=== PATIENT | female | born 1960 | race Caucasian/White ===

== ENCOUNTER 2022-01-27 05:25 | Day surgery (SDC) | payer OTHER ==
[~2022-01-27] VITALS: Ht 158 cm; Wt 95.0 kg
[~2022-01-27 05:25] MED LIST: CALCIUM 600 +1 EA13 PO; CELEBREX200 MG PO; EFFEXOR-XR 75 M75 MG PO; FISH OIL 500 M1 EAC2 PO; HCTZ12.5 MG PO; MAG-OXIDE 400M400 MG PO; MULTI FOR HER1 EAC2 PO; OXYBUTYNIN CHLO10 MG PO; SIMVASTATIN40 MG PO; TYLENOL ARTHRI650 MG PO; VITAMIN B COMP1 EAC1 PO; VITAMIN D350 MC4 PO
[2022-01-27] MEDS ORDERED: METFORMIN HCL500 MG PO (05:43)
[2022-01-28 05:42] LABS: BASOPHIL 0.2 % (0-2); EOSINOPHIL 0.3 % (0-5); HCT 30.7 % (37.0-47.0); HGB 10.1 g/dl (12.5-16.0); LYMPHOCYTE 13.2 % (15-48); MCH 29.5 pg (25.0-31.0); MCHC 32.9 g/dL (32.0-36.0); MCV 89.8 fL (78.0-100.0); MONOCYTE 12.4 % (0-12); MPV 9.3 fL (6.0-9.5); NEUTROPHIL 73.5 % (41-80); NRBC 0; PLT 216 K/uL (150-400); RBC 3.42 M/uL (4.20-5.40); RDW 12.7 % (11.5-14.0)
[2022-01-28 06:51] LABS: BUN/CREAT RATIO (CALC) 19.7 RATIO; CREATININE 0.76 mg/dL (0.51-0.95); POTASSIUM 3.6 mmol/L (3.5-5.1)
[2022-01-28] MEDS ORDERED: FEOSOL325 MG PO (08:45)
[2022-01-28] MEDS ORDERED: OXYCODONE-ACET1 EAC1 PO (08:45)
[2022-01-28] MEDS ORDERED: XARELTO10 MG PO (08:45)
[2022-01-28] MEDS ORDERED: ONDANSETRON HCL4 MG PO (08:48)
--- NOTE | 2022-01-28 10:05 | NUR ---
PT HAD A RTKR ON 01/27/22. [facility] DELIVERED A RW. PT. REQUESTED KORT TO HOME. ADVISED PT THAT [employer] COPAY IS $169.02 PER [facility]. SHE STATED THAT SHE CANNOT AFFORD THE COPAY. ADVISED [facility]ILLER. SHE CONTACTED DR. CRAVEN AND HE CHANGED IT TO ASPIRIN 325MG A DAY FOR 4 WEEKS. ADVISED PT OF THIS INFORMATION.
[2022-01-28] MEDS ORDERED: ASPIRIN325 MG PO (10:34)
== END 2022-01-28 11:29 | disposition home health service (06) ==
LOC: FAS 05:25 → FMS 10:45 → FAS 01-28 11:29
PROVIDERS: Nurse Practitioner Adult Health
DX: M17.0 Bilateral primary osteoarthritis of knee (principal); M21.061 Valgus deformity, not elsewhere classified, right knee; M25.761 Osteophyte, right knee; M67.261 Synovial hypertrophy, not elsewhere classified, right lower leg; R42 Dizziness and giddiness; I10 Essential (primary) hypertension; F32.A Depression, unspecified; Z88.0 Allergy status to penicillin
CPT/HCPCS: 36415; 73560; 80048; 85025; 86850; 86900; 86901; 94010; 94762; 97110; 97162; 97165; 97530-GP; C1713; C1776; J0171; J1100; J1170; J1885; J2250; J2270; J2405; J2704; J2795; J3010; J7120